=== PATIENT | male | born 1950 | race Caucasian/White ===

== ENCOUNTER 2018-12-25 12:39 | Inpatient (IN) | payer OTHER ==
[~2018-12-25] VITALS: Ht 167.6 cm; Wt 70.3 kg
[2018-12-25] MEDS ORDERED: GLUMETZA1000 MG (13:37)
[2018-12-25] MEDS ORDERED: SIMVASTATIN80 MG (13:37)
[2018-12-25] MEDS ORDERED: GLIPIZIDE XL10 MG (13:37)
[2018-12-25] MEDS ORDERED: LEVO-T88 MCG (13:38)
[2018-12-25] MEDS ORDERED: ENALAPRIL MALEA10 MG (13:38)
[2018-12-25] MEDS ORDERED: PAXIL20 MG (13:39)
[2018-12-25] MEDS ORDERED: PLAVIX75 MG (13:39)
[2018-12-25] MEDS ORDERED: CHILDREN'S ASPI81 MG (13:39)
== END 2018-12-29 15:25 | disposition home or self-care (01) | DRG 603 ==
LOC: ER 12:39 → SEC-K 20:44 → SURG 20:44 → SURH 12-26 21:28
PROVIDERS: ADMIT Student in an Organized Health Care Education/Training Program
PROC: B54DZZZ Ultrasonography of Bilateral Lower Extremity Veins (ICD-10-PCS; principal; 2018-12-25)
PROC: 8E0ZXY6 Isolation (ICD-10-PCS; 2018-12-26)
DX: L03.115 Cellulitis of right lower limb (principal); L03.113 Cellulitis of right upper limb; I87.2 Venous insufficiency (chronic) (peripheral); E11.9 Type 2 diabetes mellitus without complications; A49.01 Methicillin susceptible Staphylococcus aureus infection, unspecified site; I10 Essential (primary) hypertension; Z79.4 Long term (current) use of insulin